=== PATIENT | female | born 1990 | race American Indian/Alaskan Native ===

== ENCOUNTER 2018-11-08 20:36 | Emergency (ER) | payer MEDICAID ==
[2018-11-08 20:47] VITALS: BMI 26.7
[2018-11-08 20:53] VITALS: RESP 18
--- NOTE | 2018-11-08 21:43 | ED PDOC ---
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 inner thigh fold abscess x 1 week. Pt. stated that it was small lesion, growing bigger, no vaginal bleeding or discharge, no vaginal pain, no numbness or tingling, no night sweat, no other medical or psychological complaints. Past Medical History - Provider Review Nursing Documentation Reviewed: Yes - Infectious Disease Hx of Infectious Diseases: None - Cardiac Hx Hypertension: Yes - Neurological HX Cerebrovascular Accident: Yes - Psychiatric Hx Substance Use: No - Surgical History Other/Comment: Loop monitor. Rods in the back - Anesthesia Hx Anesthesia: Yes Hx Malignant Hyperthermia: No Family/Social History - Physician Review Nursing Documentation Reviewed: Yes Family/Social History: Unknown Family HX Smoking Status: Light Smoker < 10 Cigarettes Daily Hx Alcohol Use: Yes Frequency of alcohol use: Socially Hx Substance Use: No Allergies/Home Meds Allergies/Adverse Reactions: Allergies No Known Allergies Allergy (Verified 11/08/18 20:47) Home Medications: Home Meds Medication Instructions Recorded Confirmed Labetalol [Trandate] 1 tab PO BID 11/08/18 11/08/18 Review of Systems - Review of Systems Constitutional: absent: Fatigue, Fevers Eyes: absent: Vision Changes ENT: absent: Hearing Changes Respiratory: absent: SOB, Cough Cardiovascular: absent: Chest Pain Gastrointestinal: absent: Abdominal Pain, Diarrhea, Nausea, Vomiting Skin: Abscess. absent: Rash, Pruritis, Skin Lesions, Laceration, Ulcer, Ce llulitis Neurological: absent: Headache, Dizziness Psychiatric: absent: Anxiety, Depression, Suicidal Ideation Physical Exam Vital Signs Reviewed: Yes Vital Signs Temp Pulse Resp BP Pulse Ox 11/08/18 20:52 99.1 F 98 H 18 138/102 H 98 Temperature: Afebrile Blood Pressure: Normal Pulse: Regular Respiratory Rate: Normal Appearance: Positive for: Well-Appearing, Non-Toxic, Comfortable Pain Distress: Moderate Mental Status: Positive for: Alert and Oriented X 3 - Systems Exam Head: Present: Atraumatic, Normocephalic Pupils: Present: PERRL Extroacular Muscles: Present: EOMI Conjunctiva: Present: Normal Mouth: Present: Moist Mucous Membranes Neck: Present: Normal Range of Motion Respiratory/Chest: Present: Clear to Auscultation, Good Air Exchange. No: Respiratory Distress, Accessory Muscle Use Cardiovascular: Present: Regular Rate and Rhythm, Normal S1, S2. No: Murmurs Abdomen: No: Tenderness, Distention, Peritoneal Signs Back: Present: Normal Inspection Upper Extremity: Present: Normal Inspection. No: Cyanosis, Edema Lower Extremity: Present: Normal Inspection. 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 lateral inner thigh fold/gluteal cleft region visible and palpable fluctuant two approx. [id number] diameter abscesses with no cellulitis or ulcers.), Normal Color Psychiatric: Present: Alert, Oriented x 3, Normal Insight, Normal Concentration Medical Decision Making ED Course and Treatment: 11/08/18 22:06 -Urine hcg -I&D -Clindamycin/percocet 11/08/18 22:13 Procedure: Incision & Drainage Performed by the emergency provider Indication: Abscesses Location: lt. inner thigh/gluteal fold Preparation: The area was prepped and draped in the usual sterile fashion and was cleansed with normal saline 1000cc and clean with btadine . Local infiltration of Lidocaine 1%1cc was used for anesthesia. Procedure: The most fluctuant portion of the abscess was incised with a #11 scalpel. Approximately 1 mL of was obtained from each abcess. The abscess was packed 1/2" packing. A dressing was applied by the RN. Post-Procedure: On exam the abscess is notably less fluctuant. The patient tolerated the procedure well, and there were no complications. 11/08/18 23:27 -Urine hcg is negative -Pt. feels much better -Discharge home with clindamycin, motrin, return to the ER in 2 days for wound check and packing change, go to see your own pmd and general surgeon within 2 days, return to the ER for any new or worsening signs or symptoms. - PA / TUFTER / Resident Statement / has reviewed & agrees with the documentation as recorded. Disposition/Present on Arrival - Present on Arrival Any Indicators Present on Arrival: No History of DVT/PE: No History of Uncontrolled Diabetes: No Urinary Catheter: No History of Decub. Ulcer: No History Surgical Site Infection Following: None - Disposition Have Diagnosis and Disposition been Completed?: Yes Diagnosis: Abscess Disposition: HOME/ ROUTINE Disposition Time: 23:29 Patient Plan: Discharge Condition: IMPROVED Additional Instructions: -Discharge home with clindamycin, motrin, return to the ER in 2 days for wound check and packing change, go to see your own pmd and general surgeon within 2 days, return to the ER for any new or worsening signs or symptoms. Prescriptions: Clindamycin [Cleocin] 300 mg PO TID #21 cap Ibuprofen [Motrin] 600 mg PO QID PRN #30 tab PRN Reason: Other Referrals: Angela Carrasco MD [Staff Provider] - Follow up with primary Lincoln Ho [Medical Doctor] - Follow up with primary [facility] [place] [Outside] - Follow up with primary Forms: [employer] (Italian), WORK NOTE
[2018-11-08] MEDS ORDERED: Oxycodone/Acetaminophen 5/325 mg Tab PO STA (22:04)
[2018-11-09 00:14] VITALS: BP 120/86; PULSE 82; TEMP 98.5; O2SAT 100
== END 2018-11-08 23:40 | disposition home or self-care (01) ==
LOC: MERGE 20:36 → ED 20:36
DX: L02.416 Cutaneous abscess of left lower limb (principal); F17.210 Nicotine dependence, cigarettes, uncomplicated; I10 Essential (primary) hypertension; Z86.73 Personal history of transient ischemic attack (TIA), and cerebral infarction without residual deficits